=== PATIENT | male | born 1955 | race African-American/Black ===

== ENCOUNTER 2017-05-14 08:07 | Emergency (ER) | payer SELFPAY ==
[~2017-05-14] VITALS: Ht 180.3 cm; Wt 82.0 kg
[2017-05-14] MEDS ORDERED: DIPHENHYDRAMINE 50MG CAPSULE PO ONE (09:30)
[2017-05-14] MEDS ORDERED: PREDNISONE 20MG TABLET PO ONE (09:30)
[2017-05-14 11:00] VITALS: BP 168/97
== END 2017-05-14 11:20 | disposition home or self-care (01) ==
LOC: ER 08:15
DX: L23.4 Allergic contact dermatitis due to dyes (principal); F17.200 Nicotine dependence, unspecified, uncomplicated
CPT/HCPCS: 99283; J7512; Q0163

== ENCOUNTER 2017-07-09 07:44 | Emergency (ER) | payer SELFPAY ==
[~2017-07-09] VITALS: Ht 172.7 cm; Wt 83.0 kg
[2017-07-09] MEDS ORDERED: KETOROLAC 60MG/2ML VIAL IM STA (08:41)
[2017-07-09 12:20] VITALS: BP 131/74
== END 2017-07-09 12:28 | disposition home or self-care (01) ==
LOC: ER 07:47
DX: S39.012A Strain of muscle, fascia and tendon of lower back, initial encounter (principal); Y93.89 Activity, other specified; Y92.89 Other specified places as the place of occurrence of the external cause
CPT/HCPCS: 72100; 96372; 99284; J1885

== ENCOUNTER 2017-09-15 13:48 | Emergency (ER) | payer SELFPAY ==
[~2017-09-15] VITALS: Ht 175.3 cm; Wt 82.0 kg
[2017-09-15] MEDS ORDERED: ACETAMINOPHEN 325MG TABLET PO ONE (17:15)
[2017-09-15] MEDS ORDERED: IBUPROFEN 600MG TABLET PO ONE (17:15)
[2017-09-15 19:27] VITALS: BP 160/94
== END 2017-09-15 19:29 | disposition home or self-care (01) ==
LOC: ER 16:22
DX: S40.012A Contusion of left shoulder, initial encounter (principal); S10.83XA Contusion of other specified part of neck, initial encounter; S30.0XXA Contusion of lower back and pelvis, initial encounter; V89.2XXA Person injured in unspecified motor-vehicle accident, traffic, initial encounter; F17.200 Nicotine dependence, unspecified, uncomplicated; Y93.89 Activity, other specified; Y92.89 Other specified places as the place of occurrence of the external cause; Y99.8 Other external cause status
CPT/HCPCS: 72040; 73030; 99284